=== PATIENT | female | born 1980 | race Caucasian/White ===

== ENCOUNTER 2017-12-11 08:20 | Emergency (ER) | payer MEDICAID ==
[~2017-12-11] VITALS: Ht 152.4 cm; Wt 73.0 kg
[2017-12-11] MEDS ORDERED: BACITRACIN ZINC OINT UDPKT TOP ONE (12:45)
[2017-12-11 13:09] VITALS: BP 130/88
== END 2017-12-11 13:09 | disposition home or self-care (01) ==
LOC: ER 08:26
DX: L02.412 Cutaneous abscess of left axilla (principal)
CPT/HCPCS: 99283